=== PATIENT | male | born 1930 | race Caucasian/White ===

== ENCOUNTER 2017-03-30 18:48 | Inpatient (IN) | payer OTHER ==
[~2017-03-30] VITALS: Ht 177.8 cm; Wt 91.6 kg
[2017-03-30 18:49] VITALS: BP 150/87
[2017-03-30 19:07] VITALS: BP 150/87
[2017-03-30] MEDS ORDERED: RANITIDINE 7575 MG PO (19:19)
[2017-03-30] MEDS ORDERED: AMANTADINE50 MG/5 ML PO (19:20)
[2017-03-30 19:22] VITALS: BP 141/77
[2017-03-30 19:28] LABS: BASO # 0.1 10*3/uL (0.0-0.1); BASO % 0.8 % (0.0-1.0); EOS # 0.3 10*3/uL (0.0-0.4); EOS % 3.6 % (1.0-4.0); HEMATOCRIT 40.8 % (42.0-52.0); HEMOGLOBIN 13.5 g/dl (14.0-18.0); LYMPH # 1.2 10*3/uL (1.3-4.4); LYMPH % 16.3 % (27.0-41.0); MEAN CELL VOLUME 95.8 fl (80.0-94.0); MEAN CORPUSCULAR HGB 31.7 pg (27.0-31.0); MEAN CORPUSCULAR HGB CONC 33.1 g/dl (33.0-37.0); MEAN PLATELET VOLUME 10.2 fl (9.6-12.3); MONO # 0.8 10*3/uL (0.1-1.0); MONO % 10.6 % (3.0-9.0); NEUT # 4.9 10*3/uL (2.3-7.9); NEUT % 68.1 % (47.0-73.0); PLATELET COUNT AUTOMATED 176 10*3/uL (130-400); RED BLOOD COUNT 4.26 10*6/uL (4.50-5.90); RED CELL DISTRI WIDTH 14.3 % (0-14.5); WHITE BLOOD COUNT 7.3 10*3/uL (4.8-10.8)
[2017-03-30 19:44] LABS: BUN 29 mg/dl (7-24); CARBON DIOXIDE 25 mmol/L (21-32); CHLORIDE 111 mmol/L (98-107); EST GLOM FILT AFRICAN AMERICAN > 60 ml/min; GLUCOSE 174 mg/dL (65-99); MAGNESIUM 2.2 mg/dL (1.5-2.1); SODIUM 145 mmol/L (136-145)
[2017-03-30 19:47] LABS: TROPONIN I < 0.015 ng/ml (<0.045)
[2017-03-30 21:05] VITALS: BP 124/90
[2017-03-30 21:29] LABS: BILIRUBIN NEGATIVE (NEGATIVE); BLOOD NEGATIVE (NEGATIVE); CLARITY SL CLOUDY (CLEAR); COLOR YELLOW (YELLOW); GLUCOSE NEGATIVE (NEGATIVE); KETONE NEGATIVE (NEGATIVE); LEUKO ESTERASE NEGATIVE (NEGATIVE); NITRITE NEGATIVE (NEGATIVE); PROTEIN NEGATIVE (NEGATIVE); SPECIFIC GRAVITY >= 1.030 (1.005-1.030)
[2017-03-30 21:34] LABS: BACTERIA 2+; EPITHELIAL CELLS 0-2; MUCOUS TRACE; RBC 0-2 rbc/hpf (0-2); URINE REFLEX COMMENT YES (NO)
[2017-03-30 21:41] VITALS: BP 135/87
[2017-03-30 22:00] VITALS: BP 172/92
[2017-03-31] VITALS: BP 162/71
[2017-03-31 05:56] LABS: BASO # 0.1 10*3/uL (0.0-0.1); BASO % 0.7 % (0.0-1.0); EOS # 0.2 10*3/uL (0.0-0.4); EOS % 2.4 % (1.0-4.0); HEMATOCRIT 38.8 % (42.0-52.0); HEMOGLOBIN 12.8 g/dl (14.0-18.0); IG # 0.1 10*3/uL (0.0-0.1); LYMPH # 1.4 10*3/uL (1.3-4.4); LYMPH % 16.1 % (27.0-41.0); MEAN CELL VOLUME 95.6 fl (80.0-94.0); MEAN CORPUSCULAR HGB 31.5 pg (27.0-31.0); MEAN PLATELET VOLUME 10.7 fl (9.6-12.3); MONO # 1.1 10*3/uL (0.1-1.0); MONO % 13.2 % (3.0-9.0); NEUT # 5.8 10*3/uL (2.3-7.9); PLATELET COUNT AUTOMATED 160 10*3/uL (130-400); RED BLOOD COUNT 4.06 10*6/uL (4.50-5.90); RED CELL DISTRI WIDTH 14.2 % (0-14.5); WHITE BLOOD COUNT 8.6 10*3/uL (4.8-10.8)
[2017-03-31 06:11] LABS: CKMB 1.4 ng/ml (0.5-3.6); TROPONIN I 0.017 ng/ml (<0.045)
[2017-03-31 06:16] LABS: HEMOGLOBIN A1c 6.3 % (4.8-5.6)
[2017-03-31 06:37] LABS: INTERNATIONAL NORM RATIO 1.1 (2.0-3.5); PROTHROMBIN TIME 11.2 SECONDS (9.0-12.4)
[2017-03-31 06:45] LABS: CHLORIDE 113 mmol/L (98-107); POTASSIUM 3.9 mmol/L (3.5-5.1); SODIUM 148 mmol/L (136-145)
[2017-03-31 06:57] LABS: VITAMIN D, 25-HYDROXY 26.1 ng/mL (30-100)
[2017-03-31 07:48] LABS: FOLIC ACID > 24.00 ng/mL (>5.38)
[2017-03-31 07:50] LABS: ALBUMIN 3.3 gm/dl (3.1-4.5); ALKALINE PHOSPHATASE 68 U/L (45-117); BILIRUBIN, TOTAL 0.6 mg/dl (0.2-1.0); BUN 25 mg/dl (7-24); CARBON DIOXIDE 21 mmol/L (21-32); CHOLESTEROL 117 mg/dL (<200); EST GLOM FILT AFRICAN AMERICAN > 60 ml/min; FREE T4 1.01 ng/dl (0.76-1.46); GLUCOSE 108 mg/dL (65-99); HDL CHOLESTEROL 57 mg/dl (40-60); LDL CHOLESTEROL 46 mg/dL (9-159); PHOSPHOROUS 3.2 mg/dL (2.5-4.9); SGOT/AST 22 IU/L (3-35); SGPT/ALT 13 U/L (12-78); TOTAL PROTEIN 6.8 gm/dL (6.4-8.2); TRIGLYCERIDES 69 mg/dl (<150); VLDL CHOLESTEROL 14 mg/dL (6-40)
[2017-03-31 08:00] VITALS: BP 140/64
[2017-03-31] MEDS ORDERED: TROSPIUM CHLORI20 M1 PO (11:09)
[2017-03-31] MEDS ORDERED: SIMVASTATIN20 MG PO (11:10)
[2017-03-31] MEDS ORDERED: MULTI VITAMINS1 TAB PO (11:10)
[2017-03-31] MEDS ORDERED: ASPIRIN CHEWABL81 MG PO (11:11)
[2017-03-31] MEDS ORDERED: VITAMIN B-12500 MC3 SL (11:12)
[2017-03-31 12:00] VITALS: BP 100/48
[2017-03-31 12:49] LABS: CKMB 1.2 ng/ml (0.5-3.6); TROPONIN I 0.018 ng/ml (<0.045)
[2017-03-31 16:00] VITALS: BP 157/85
[2017-03-31 18:22] LABS: CKMB 1.2 ng/ml (0.5-3.6); CPK 107 U/L (39-308)
[2017-03-31 18:23] LABS: TROPONIN I < 0.015 ng/ml (<0.045)
[2017-04-01] VITALS: BP 137/77
[2017-04-01 06:17] LABS: BASO % 0.5 % (0.0-1.0); EOS # 0.4 10*3/uL (0.0-0.4); EOS % 4.7 % (1.0-4.0); HEMATOCRIT 37.2 % (42.0-52.0); HEMOGLOBIN 12.4 g/dl (14.0-18.0); IG # 0.1 10*3/uL (0.0-0.1); LYMPH # 1.4 10*3/uL (1.3-4.4); LYMPH % 18.2 % (27.0-41.0); MEAN CELL VOLUME 94.7 fl (80.0-94.0); MEAN CORPUSCULAR HGB 31.6 pg (27.0-31.0); MEAN CORPUSCULAR HGB CONC 33.3 g/dl (33.0-37.0); MEAN PLATELET VOLUME 10.2 fl (9.6-12.3); MONO % 13.5 % (3.0-9.0); NEUT # 4.6 10*3/uL (2.3-7.9); NEUT % 62.4 % (47.0-73.0); PLATELET COUNT AUTOMATED 136 10*3/uL (130-400); RED BLOOD COUNT 3.93 10*6/uL (4.50-5.90); RED CELL DISTRI WIDTH 13.9 % (0-14.5); WHITE BLOOD COUNT 7.4 10*3/uL (4.8-10.8)
[2017-04-01 06:27] LABS: CARBON DIOXIDE 24 mmol/L (21-32); CHLORIDE 107 mmol/L (98-107); GLUCOSE 110 mg/dL (65-99); POTASSIUM 3.6 mmol/L (3.5-5.1); SODIUM 143 mmol/L (136-145)
[2017-04-01 06:28] LABS: EST GLOM FILT AFRICAN AMERICAN > 60 ml/min
[2017-04-01 06:36] LABS: BUN 14 mg/dl (7-24)
[2017-04-01 08:00] VITALS: BP 156/70
[2017-04-01] MEDS ORDERED: D-1000 185 MG-11 TAB PO (14:15)
== END 2017-04-01 15:00 | disposition home or self-care (01) | DRG 684 ==
LOC: ED 18:48 → 4E 21:02 → EDHOLD 21:02 → 5E 21:07 → 4E 21:22
PROVIDERS: Hospitalist; Internal Medicine; Student in an Organized Health Care Education/Training Program
DX: N17.0 Acute kidney failure with tubular necrosis (principal); G20 Parkinson's disease; S09.90XA Unspecified injury of head, initial encounter; R55 Syncope and collapse; E86.0 Dehydration; Z51.5 Encounter for palliative care; I10 Essential (primary) hypertension; R26.2 Difficulty in walking, not elsewhere classified; R82.71 Bacteriuria; Z66 Do not resuscitate; E66.3 Overweight; E78.5 Hyperlipidemia, unspecified; Z96.641 Presence of right artificial hip joint; D53.9 Nutritional anemia, unspecified; E55.9 Vitamin D deficiency, unspecified; F02.80 Dementia in other diseases classified elsewhere, unspecified severity, without behavioral disturbance, psychotic disturbance, mood disturbance, and anxiety; W10.8XXA Fall (on) (from) other stairs and steps, initial encounter; Y93.89 Activity, other specified; Y92.098 Other place in other non-institutional residence as the place of occurrence of the external cause; Y99.8 Other external cause status; Z86.718 Personal history of other venous thrombosis and embolism; Z80.9 Family history of malignant neoplasm, unspecified; Z91.041 Radiographic dye allergy status; Z79.82 Long term (current) use of aspirin; Z79.899 Other long term (current) drug therapy; Z68.28 Body mass index [BMI] 28.0-28.9, adult

== ENCOUNTER 2018-01-06 08:43 | Inpatient (IN) | payer OTHER ==
[2018-01-06] VITALS (8 sets, daily range): BP systolic 93–117; BP diastolic 47–72
[~2018-01-06] VITALS: Ht 182.8 cm; Wt 81.6 kg
--- NOTE | ~2018-01-06 | PR ---
[place], [place] PROGRESS NOTE NAME: GLO BERNAL UNIT #: [id number] ROOM: 425 DOCTOR: MARLEE MAY,KIRA Murrieta BIRTHDATE: [birth year] DOS: 01/08/2018 This documents telephone conversation with [facility]. I did call to check on the patient's status. I actually called twice and directed my nurse, Paula to call as well. In all 3 telephone calls were made. The number used was [phone]. I was unable to speak with physician, but I did speak with the nurse. To date, the patient has not undergone any surgical stabilization yet. He is in the trauma ICU. They listed his condition is stable. Kira Whalen MD CM:PNTRANS [id number] KIRA WHALEN MD 01/08/18 221 interface
--- NOTE | ~2018-01-06 | CON ---
[place], [place] REPORT OF CONSULTATION NAME: GLO BERNAL UNIT #: [id number] ROOM: 425 DOCTOR: KIRA WHALEN MD BIRTHDATE: [birth year] DOS: 01/07/2018 CHIEF COMPLAINT: Right knee fracture. HISTORY OF PRESENT ILLNESS: This is a pleasant 87-year-old man with a history of Parkinson's disease who had a fall yesterday down 20 steps and is admitted to the hospital with multiple injuries. I started my call shift this morning at 7:00 a.m. and saw this patient on rounds. The patient is noted to have multiple injuries including bilateral rib fractures #3 through 8 on the right and #4 through 9 on the left; multiple transverse process fractures, age indeterminate; and vertebral loss of height at T8-T9. He also has a likely Schatzker right tibial plateau fracture. The patient was able to sleep overnight. For pain medication, he is receiving Dilaudid 0.5 mg. He last was dosed at 3:48 a.m. Previously, he got pain medicine at 11:00 p.m. and 7:49 p.m., so that is about every 4-5 hours for pain medicine. Right now, his pain is moderate, about a 5 on a scale of 1-10, 10 being the worst. He has got pain in his chest, his ribs, both his shoulders, and his leg. No numbness nor tingling in the toes. He was able to sleep for about 4-5 hours last night. PAST MEDICAL AND SURGICAL HISTORY: 1. Parkinson's disease. 2. Dementia. 3. Hyperlipidemia. 4. Hyperglycemia. 5. History of falls. 6. Vitamin D deficiency. 7. Status post back surgery. 8. Status post head surgery, unspecified. SOCIAL HISTORY: No alcohol use. No illicit drug use. Nonsmoker. ALLERGIES TO MEDICINE: IV DYE, SEVERE. HOME MEDICATIONS: Please see medication reconciliation sheet. REVIEW OF SYSTEMS: No unexpected weight loss or weight gain, fever, chills, or fatigue. PHYSICAL EXAMINATION: GENERAL APPEARANCE: He is well. He is oriented to person, place and time. His mood is euthymic. His affect is appropriate. I watched him breathe. His breathing is unlabored. MUSCULOSKELETAL: I examined the right leg. He was in a knee immobilizer with bulky Harley cotton. I took down the knee immobilizer and opened up the Harley cotton. I felt the compartments in the leg. The compartments are soft. There is some swelling, but the compartments remained soft. I passively ranged his toes and his ankle. He had no increase in pain with these maneuvers. The patient is able to actively flex and extend the great toe and the ankle without [place], [place] REPORT OF CONSULTATION NAME: GLO BERNAL UNIT #: [id number] ROOM: 425 DOCTOR: KIRA WHALEN MD BIRTHDATE: [birth year] an increase in pain. Skin envelope around the knee is intact. No tenderness to palpation over the right ankle. His toes are warm and well perfused. He grossly feels light touch sensation throughout the foot. This is symmetric with the contralateral side. The patient has very weak pedal pulses, but they are symmetric bilaterally. I examined the left leg. No tenderness to palpation throughout the leg. VASCULAR AND NEUROLOGIC: Examination are symmetric on the left with the right. RADIOLOGICAL DATA: I reviewed tib-fib x-ray, pelvic x-ray, knee x-ray, and his chest, abdomen, and pelvis CT. He has numerous bilateral rib fractures #3 through 8 on the right and #4 through 9 on the left. Age indeterminate multiple transverse process fractures and loss of vertebral height at T8 and T9. For the right leg, he has got a significantly comminuted likely Schatzker tibial plateau fracture. IMPRESSION: An 87-year-old man with a history of Parkinson's and dementia with a fall yesterday down 20 steps with multiple organ systems injury. I have recommended the patient be transferred today to a level 1 trauma facility. After seeing the patient on rounds, I directed to the attending that the transfer be initiated. My reasoning is the following: He had a high level energy fall down 20 steps, he has got multiple systems injured including bilateral ribs, spine, and right lower extremity. I believe that our [facility] is not equipped to take care of potential complications from this injury including complications such as pneumothorax or delayed findings such as bleeds. For the right leg, there is no compartment syndrome right now. His last medication was 4 hours ago when he received 0.5 mg of Dilaudid. Previously to that, his last dose was 11:00 p.m., so his consumption of pain medication has been consistent with his injuries and not excessive. He reports his pain is being moderate. I recognize that he has dementia and so I cannot rely 100% on his answers. However, my impression of looking at him and listening to him that his pain is about moderate. I did consider stabilizing this fracture in the operating room using an external fixator with a potential compartment release. However, this would significantly delay his transfer. As there is no compartment syndrome right now, I feel that it is best to transfer him first and he can be stabilized more appropriately in the trauma setting where they can be ready for complications that could arise in the OR during the procedure. I have directed that the transfer take place as soon as possible as can be arranged. I explained to the patient the issues. There are risks with transfer including decompensation during transfer, worsening of his condition, need for surgery upon arrival at the accepting facility, car accident during transfer, and other risks. [place], [place] REPORT OF CONSULTATION NAME: GABEGLO H UNIT #: [id number] ROOM: 425 DOCTOR: KIRA WHALEN MD BIRTHDATE: [birth year] Kira Whalen MD CM:CONSTR:REPORT OF CONSULTATION 0817 01/07/18 0934 interface
[~2018-01-06 08:43] MED LIST: AMANTADINE50 MG/5 ML PO; ASPIRIN CHEWABL81 MG PO; D-1000 185 MG-11 TAB PO; MULTI VITAMINS1 TAB PO; RANITIDINE 7575 MG PO; SIMVASTATIN20 MG PO; TROSPIUM CHLORI20 M1 PO; VITAMIN B-12500 MC3 SL
[2018-01-06 09:30] LABS: BASO # 0.1 10*3/uL (0.0-0.1); BASO % 0.7 % (0.0-1.0); EOS # 0.2 10*3/uL (0.0-0.4); EOS % 2.7 % (1.0-4.0); HEMATOCRIT 41.4 % (42.0-52.0); HEMOGLOBIN 13.5 g/dl (14.0-18.0); LYMPH # 1.2 10*3/uL (1.3-4.4); LYMPH % 13.1 % (27.0-41.0); MEAN CELL VOLUME 96.1 fl (80.0-94.0); MEAN CORPUSCULAR HGB 31.3 pg (27.0-31.0); MEAN CORPUSCULAR HGB CONC 32.6 g/dl (33.0-37.0); MEAN PLATELET VOLUME 10.8 fl (9.6-12.3); MONO # 0.8 10*3/uL (0.1-1.0); MONO % 8.5 % (3.0-9.0); NEUT # 6.6 10*3/uL (2.3-7.9); NEUT % 73.4 % (47.0-73.0); PLATELET COUNT AUTOMATED 167 10*3/uL (130-400); RED BLOOD COUNT 4.31 10*6/uL (4.50-5.90); RED CELL DISTRI WIDTH 14.2 % (0-14.5)
[2018-01-06 09:41] LABS: ACT PARTIAL THROMBO TIME 21.1 SECONDS (20.8-31.5)
[2018-01-06 09:49] LABS: ALBUMIN 3.3 gm/dl (3.1-4.5); BUN 21 mg/dl (7-24); CHLORIDE 108 mmol/L (98-107); LIPASE 81 U/L (73-393); POTASSIUM 4.4 mmol/L (3.5-5.1); SGOT/AST 17 IU/L (3-35); SODIUM 142 mmol/L (136-145)
[2018-01-06 09:51] LABS: ALKALINE PHOSPHATASE 76 U/L (45-117); CREATININE 1.01 mg/dL (0.70-1.30); SGPT/ALT 17 U/L (12-78); TOTAL PROTEIN 6.8 gm/dL (6.4-8.2)
[2018-01-06 09:52] LABS: TROPONIN I < 0.015 ng/ml (<0.045)
[2018-01-06 12:23] LABS: BILIRUBIN NEGATIVE (NEGATIVE); BLOOD NEGATIVE (NEGATIVE); CLARITY SL CLOUDY (CLEAR); COLOR YELLOW (YELLOW); GLUCOSE NEGATIVE (NEGATIVE); KETONE TRACE (NEGATIVE); LEUKO ESTERASE 1+ (NEGATIVE); NITRITE NEGATIVE (NEGATIVE); PH 5.5 (5.0-9.0); SPECIFIC GRAVITY >= 1.030 (1.005-1.030); UROBILINOGEN 0.2 E.U./dl (0.2-1.0)
[2018-01-06 12:34] LABS: BACTERIA 3+; EPITHELIAL CELLS 16-20; RBC 41-50 rbc/hpf (0-2)
[2018-01-07] VITALS: BP 94/56
[2018-01-07 06:12] LABS: HEMATOCRIT 35.7 % (42.0-52.0); MEAN CELL VOLUME 96.2 fl (80.0-94.0); MEAN CORPUSCULAR HGB 30.7 pg (27.0-31.0); MEAN CORPUSCULAR HGB CONC 31.9 g/dl (33.0-37.0); PLATELET COUNT AUTOMATED 147 10*3/uL (130-400); RED BLOOD COUNT 3.71 10*6/uL (4.50-5.90); RED CELL DISTRI WIDTH 14.6 % (0-14.5); WHITE BLOOD COUNT 10.4 10*3/uL (4.8-10.8)
[2018-01-07 06:13] LABS: HEMOGLOBIN 11.4 g/dl (14.0-18.0)
[2018-01-07 06:28] LABS: INTERNATIONAL NORM RATIO 1.1 (2.0-3.5)
[2018-01-07 06:29] LABS: ALBUMIN 2.9 gm/dl (3.1-4.5); BUN 25 mg/dl (7-24); CHLORIDE 109 mmol/L (98-107); CHOLESTEROL 106 mg/dL (<200); HDL CHOLESTEROL 52 mg/dl (40-60); LDL CHOLESTEROL 41 mg/dL (9-159); PHOSPHOROUS 3.3 mg/dL (2.5-4.9); POTASSIUM 4.2 mmol/L (3.5-5.1); SGOT/AST 21 IU/L (3-35); SGPT/ALT 16 U/L (12-78); SODIUM 142 mmol/L (136-145); TRIGLYCERIDES 65 mg/dl (<150); VLDL CHOLESTEROL 13 mg/dL (6-40)
[2018-01-07 06:34] LABS: ALKALINE PHOSPHATASE 66 U/L (45-117)
[2018-01-07 06:49] LABS: BASOPHILS 1 % (0-1); TOTAL CELLS COUNTED 100 #CELLS
[2018-01-07 06:50] LABS: BURR CELLS FEW; PLATELET SUFFICIENCY NORMAL (NORMAL)
[2018-01-07 07:56] LABS: VITAMIN D, 25-HYDROXY 21.6 ng/mL (30-100)
[2018-01-07 08:00] VITALS: BP 138/84
== END 2018-01-07 09:09 | disposition short-term general hospital (02) | DRG 184 ==
LOC: ED 08:43 → EDHOLD 13:43 → 4E 13:43
PROVIDERS: Emergency Medicine; Hospitalist
PROC: 2W3QXYZ Immobilization of Right Lower Leg using Other Device (ICD-10-PCS; principal; 2018-01-06)
DX: S22.43XA Multiple fractures of ribs, bilateral, initial encounter for closed fracture (principal); E44.1 Mild protein-calorie malnutrition; E86.0 Dehydration; G20 Parkinson's disease; S82.191A Other fracture of upper end of right tibia, initial encounter for closed fracture; M43.10 Spondylolisthesis, site unspecified; R26.2 Difficulty in walking, not elsewhere classified; Z96.641 Presence of right artificial hip joint; S09.90XS Unspecified injury of head, sequela; M43.9 Deforming dorsopathy, unspecified; N20.0 Calculus of kidney; W10.8XXA Fall (on) (from) other stairs and steps, initial encounter; E78.2 Mixed hyperlipidemia; E55.9 Vitamin D deficiency, unspecified; F02.80 Dementia in other diseases classified elsewhere, unspecified severity, without behavioral disturbance, psychotic disturbance, mood disturbance, and anxiety; Z79.899 Other long term (current) drug therapy; Z91.041 Radiographic dye allergy status; Z86.718 Personal history of other venous thrombosis and embolism; Y93.89 Activity, other specified; Y92.098 Other place in other non-institutional residence as the place of occurrence of the external cause; Y99.8 Other external cause status; Z68.24 Body mass index [BMI] 24.0-24.9, adult

== ENCOUNTER 2018-02-27 17:17 | Emergency (ER) | payer OTHER ==
[~2018-02-27] VITALS: Wt 90.7 kg
[2018-02-27 18:00] LABS: ABG HCO3 18.9 mmol/l (22-26); ABG O2 SATURATION 87.8 % (95-97); ARTERIAL BLOOD GAS PO2 91.1 mmHg (80-90)
[2018-02-27 18:01] LABS: ABG BASE EXCESS -15.3 mmol/L (-2.0-2.0)
[2018-02-27 18:03] LABS: ARTERIAL BLOOD GAS PH 6.926 (7.35-7.45)
[2018-02-27 18:37] LABS: ABG BASE EXCESS -1.3 mmol/L (-2.0-2.0); ABG HCO3 31.3 mmol/l (22-26); ABG O2 SATURATION 42.1 % (95-97)
[2018-02-27 18:41] LABS: ARTERIAL BLOOD GAS PH 7.057 (7.35-7.45)
[2018-02-27 18:42] LABS: ARTERIAL BLOOD GAS PO2 37.1 mmHg (80-90)
[2018-02-27 18:46] LABS: MEAN PLATELET VOLUME 10.4 fl (9.6-12.3)
[2018-02-27 19:03] LABS: ALBUMIN 1.8 gm/dl (3.1-4.5); ALKALINE PHOSPHATASE 129 U/L (45-117); BUN 27 mg/dl (7-24); CHLORIDE 108 mmol/L (98-107); CREATININE 1.28 mg/dL (0.70-1.30); POTASSIUM 3.7 mmol/L (3.5-5.1); SGOT/AST 147 IU/L (3-35); SGPT/ALT 96 U/L (12-78); SODIUM 148 mmol/L (136-145); TOTAL PROTEIN 4.7 gm/dL (6.4-8.2)
[2018-02-27 19:11] LABS: HEMATOCRIT 29.7 % (42.0-52.0); HEMOGLOBIN 9.3 g/dl (14.0-18.0); MEAN CORPUSCULAR HGB 31.6 pg (27.0-31.0); MEAN CORPUSCULAR HGB CONC 31.3 g/dl (33.0-37.0); NUCLEATED RED BLOOD CELL 0.1 10*3/uL (0.0-0.0); NUCLEATED RED BLOOD CELL 0.4 % (0.0-0.0); PLATELET COUNT AUTOMATED 166 10*3/uL (130-400); RED BLOOD COUNT 2.94 10*6/uL (4.50-5.90); RED CELL DISTRI WIDTH 14.5 % (0-14.5); WHITE BLOOD COUNT 32.8 10*3/uL (4.8-10.8)
[2018-02-27 19:35] LABS: PLATELET SUFFICIENCY NORMAL (NORMAL); POLYCHROMASIA SLIGHT; TOTAL CELLS COUNTED 100 #CELLS
== END 2018-02-27 19:25 | disposition short-term general hospital (02) ==
LOC: ED 17:17
PROVIDERS: Emergency Medicine
DX: I46.9 Cardiac arrest, cause unspecified (principal); E78.5 Hyperlipidemia, unspecified; Z98.890 Other specified postprocedural states; Z86.718 Personal history of other venous thrombosis and embolism; Z79.82 Long term (current) use of aspirin; Z91.041 Radiographic dye allergy status